=== PATIENT | female | born 1995 | race Caucasian/White ===

== ENCOUNTER 2017-02-06 06:45 | Emergency (ER) | payer OTHER ==
--- NOTE | 2017-02-06 07:46 | ED ---
URI HPI - General Chief Complaint: Upper Respiratory Infection Stated Complaint: lung pain Time Seen by Provider: 02/06/17 07:10 Source: patient, RN notes reviewed Mode of arrival: ambulatory Limitations: no limitations - History of Present Illness Initial Comments: This is a 21-year-old female presents with complaints of sore throat for 4 days a cough with green phlegm. She denies any overt fevers chills or sweats she states she does feel cold at this time. She has any earache no rhinorrhea no dysuria hematuria she is a smoker MD Complaint: cough, sore throat - Related Data Home Medications Medication Instructions Recorded Confirmed DULoxetine HCL [Cymbalta] 20 mg PO DAILY 02/06/17 02/06/17 Ondansetron [Zofran ODT] 4 mg PO Q8HR PRN 02/06/17 02/06/17 Ranitidine HCl [Zantac] 150 mg PO BID 02/06/17 02/06/17 traMADol HCL [Ultram] 50 mg PO Q4HR PRN 02/06/17 02/06/17 Previous Rx's Medication Instructions Recorded Azithromycin [Zithromax Z-pack] 250 mg PO DIRECTED #6 tab 02/06/17 Allergies Allergy/AdvReac Type Severity Reaction Status Date / Time cephalexin [From Keflex] Allergy Rash/Hives Verified 02/06/17 07:47 Penicillins Allergy Rash/Hives Verified 02/06/17 07:47 hydrocodone [From Vicodin] AdvReac Nausea & Verified 02/06/17 07:47 Vomiting Review of Systems ROS Statement: Those systems with pertinent positive or pertinent negative responses have been documented in the HPI. ROS Other: All systems not noted in ROS Statement are negative. Past Medical History Past Medical History: No Reported History History of Any Multi-Drug Resistant Organisms: MRSA Date of last positivie culture/infection: 2014 MDRO Source:: left thigh Past Surgical History: No Surgical Hx Reported Past Psychological History: Anxiety, Bipolar, Depression Smoking Status: Current every day smoker Past Alcohol Use History: None Reported Past Drug Use History: None Reported General Exam - General Exam Comments Initial Comments: This is a well-developed well-nourished awake alert oriented 3 female Limitations: no limitations General appearance: alert, in no apparent distress Head exam: Present: atraumatic, normocephalic, normal inspection Eye exam: Present: normal appearance, PERRL, EOMI. Absent: scleral icterus, conjunctival injection, periorbital swelling ENT exam: Present: mucous membranes moist, TM's normal bilaterally, other (Mild hyperemia to the posterior pharynx no exudates) Neck exam: Present: normal inspection, full ROM, lymphadenopathy. Absent: meningismus Respiratory exam: Present: normal lung sounds bilaterally. Absent: respiratory distress, wheezes, rales, rhonchi, stridor Cardiovascular Exam: Present: regular rate, normal rhythm, normal heart sounds. Absent: systolic murmur, diastolic murmur, rubs, gallop, clicks GI/Abdominal exam: Present: soft, normal bowel sounds. Absent: distended, tenderness, guarding, rebound, rigid Extremities exam: Present: normal inspection, full ROM, normal capillary refill. Absent: tenderness, pedal edema, joint swelling, calf tenderness Back exam: Present: normal inspection Neurological exam: Present: alert, oriented X3, CN II-XII intact Psychiatric exam: Present: normal affect, normal mood Skin exam: Present: warm, dry, intact, normal color. Absent: rash Course Vital Signs 02/06/17 02/06/17 06:54 07:59 Temperature 97.5 F L Pulse Rate 90 Respiratory 18 18 Rate Blood Pressure 118/86 O2 Sat by Pulse 99 Oximetry - Reevaluation(s) Reevaluation #1: 02/06/17 07:46 Did discuss the risks and benefits of smoking cessation. Medical Decision Making - Medical Decision Making Did discuss findings with patient does demonstrate tonsillitis/bronchitis . She is smoker she - Radiology Data Radiology results: report reviewed (I did review the imaging and reports no acute findings), image reviewed Disposition Clinical Impression: Acute tonsillitis, Asthmatic bronchitis, Smoking Disposition: HOME SELF-CARE Condition: Good Instructions: Tonsillitis (ED), Acute Bronchitis (ED), How to Stop Smoking (ED) Prescriptions: Azithromycin [Zithromax Z-pack] 250 mg PO DIRECTED #6 tab Referrals: Nonstaff,Physician [Primary Care Provider] - 1-2 days
--- NOTE | 2017-02-06 07:47 | XR ---
EXAMINATION TYPE: XR chest 2V DATE OF EXAM: 02/06/2017 HISTORY: Pain, cough. REFERENCE: NONE. FINDINGS: The lungs are clear. Pleural spaces are clear. The heart is not enlarged. IMPRESSION: NORMAL CHEST.
[2017-02-06 08:25] VITALS: BP 107/53; PULSE 80; RESP 16; TEMP 97.7
== END 2017-02-06 08:23 | disposition home or self-care (01) ==
LOC: EC 06:45
DX: J45.909 Unspecified asthma, uncomplicated (principal); J03.90 Acute tonsillitis, unspecified; F32.9 Major depressive disorder, single episode, unspecified; F41.9 Anxiety disorder, unspecified; F17.200 Nicotine dependence, unspecified, uncomplicated; Z79.899 Other long term (current) drug therapy; Z88.0 Allergy status to penicillin; Z88.1 Allergy status to other antibiotic agents; Z88.5 Allergy status to narcotic agent
CPT/HCPCS: 71020; 99283